=== PATIENT | female | born 1995 | race Caucasian/White ===

== ENCOUNTER → 2019-09-16 15:14 | Outpatient (CLI) | payer OTHER, SELFPAY | PROVIDERS: Visit Provider Physician Assistant | DX: J02.9 Acute pharyngitis, unspecified (principal) | CPT/HCPCS: 87070 ==

== ENCOUNTER 2020-02-13 16:15 | Emergency (ER) | payer OTHER, SELFPAY ==
[2020-02-13 16:25] VITALS: BP 136/89; PULSE 89; RESP 16; TEMP 36.6; O2SAT 99; BMI 23.2
--- NOTE | 2020-02-13 16:33 | DI.RAD.S_ITS ---
PROCEDURE: XR CHEST 2V INDICATIONS: COVID+ 01/18, increasing shortness of breath, R crackles TECHNIQUE: 2 views of the chest were acquired. COMPARISON: None. FINDINGS: Surgical changes and devices: None. Lungs and pleura: Lungs are clear. No pleural effusions or pneumothorax. Mediastinum: Mediastinal contours are normal. Heart size is normal. Bones and chest wall: No suspicious bony abnormalities. Soft tissues appear unremarkable. IMPRESSION: Clear lungs, without focal infiltrates. If there is clinical concern for a developing pulmonary process, a short-term followup chest series (with PA and lateral views, performed in deep inspiration) is suggested for further evaluation. Dictated by: Jus Bean M.D. on 02/13/2020 at 15:55 Approved by: Jus Bean M.D. on 02/13/2020 at 15:55
[2020-02-13 17:33] VITALS: BP 121/86; PULSE 80; O2SAT 98
[2020-02-13 18:00] VITALS: BP 112/79; PULSE 81; O2SAT 97
--- NOTE | 2020-02-13 18:11 | ED_ITS ---
HPI - SOB/Dyspnea General Chief Complaint: Shortness of Breath/Dyspnea Stated Complaint: SOB, Sharp Pain Tested Positive For COVID 01/18 Time Seen by Provider: 02/13/20 18:00 Source: patient Mode of arrival: Ambulatory Limitations: no limitations History of Present Illness HPI Narrative: Patient is a 25-year-old female who presents With shortness of breath. She states she tested positive for COVID on January 18. She lost her taste and smell which have not returned. She finished her quarantine is back at work overall has been feeling well in till today. She says today she felt like she could not take a deep breath just at rest. She says previously with exertion she is more short of breath which is likely thought the residual a COVID however today she felt was different. She has no real chest pain. She does not appear to be in any acute respiratory distress. She has not had any fever or productive cough. She has no recent travel and has been up and active. MD Complaint: shortness of breath and pain with inspiration Context: recent illness Severity: mild Relieving factors: nothing Exacerbating factors: nothing Related Data Home Medications Medication Instructions Recorded Confirmed No Known Home Medications 09/16/19 09/16/19 Allergies Allergy/AdvReac Type Severity Reaction Status Date / Time No Known Drug Allergies Allergy Unverified 09/16/19 15:08 Review of Systems Review of Systems Narrative: GENERAL: Denies chills, fatigue, malaise, fever, sweats, travel HEENT: Denies sinus pain, ear pain, sore throat, difficulty swallowing, neck pain RESPIRATORY: See HPI CARDIOVASCULAR: Denies chest pain, palpitations, orthopnea, edema GASTROINTESTINAL: Denies nausea, vomiting, abdominal pain, diarrhea, constipation, melena. : Denies dysuria, frequency, incontinence, hematuria, urinary retention, flank pain. MUSCULOSKELETAL: Denies weakness, joint pain, or bony pain SKIN: No rash, no erythema, no pruritus NEUROLOGIC: Denies weakness, dizziness, headache, numbness, change in speech, confusion PSYCHIATRIC: No concerning psychosocial issues. 12 point review of systems is negative except for those stated above and HPI Patient History Medical History COVID-19 Social History Smoking Status: Never smoker Smoking Status: Never smoker alcohol intake frequency: holidays/special occasions only Substance Use Type: does not use Exam Initial Vital Signs Initial Vital Signs: Vital Signs Temperature 97.8 F 02/13/20 16:25 Pulse Rate 89 02/13/20 16:25 Respiratory Rate 16 02/13/20 16:25 Blood Pressure 136/89 02/13/20 16:25 Pulse Oximetry 99 02/13/20 16:25 GENERAL: Well-appearing, well-nourished and in no acute distress. HEENT: Head atraumatic,EOMI, pupils reactive, face symmetric, moist mucous membranes CARDIOVASCULAR: Regular rate and rhythm without murmurs, rubs or gallops. RESPIRATORY: Breath sounds equal bilaterally, no wheezes rales or rhonchi. ABDOMEN: Soft, nontender. Normoactive bowel sounds all 4 quadrants. No guarding or rebound. EXTREMITIES: Normal range of motion, no clubbing or edema. Neurovascularly intact NEUROLOGICAL: Alert and oriented x4.Normal gait and speech. SKIN: Warm, dry, no laceration, no petechiae, no rashes or lesions. Course Orders Ordered: ED Orders 02/13/20 16:33 XR chest 2V Stat 02/13/20 18:11 EKG-12 Lead Stat Discontinued Medications Albuterol (Albuterol Hfa Prepack) 1 box [facility] Stop: 02/13/20 18:12 Last Admin: 02/13/20 18:24 Dose: 1 box Documented by: JAJA Vital Signs Vital signs: Vital Signs - 8 hr 02/13/20 16:25 02/13/20 17:33 02/13/20 18:00 Temperature 97.8 F Pulse Rate 89 80 81 Respiratory Rate 16 Blood Pressure 136/89 121/86 112/79 Pulse Oximetry 99 98 97 02/13/20 18:30 Temperature Pulse Rate 78 Respiratory Rate Blood Pressure 122/79 Pulse Oximetry 98 MDM - SOB/Dyspnea Imaging Data Chest x-ray: Radiologist's Impression: PROCEDURE: XR CHEST 2V INDICATIONS: COVID+ 12/1, increasing shortness of breath, R crackles TECHNIQUE: 2 views of the chest were acquired. COMPARISON: None. FINDINGS: Surgical changes and devices: None. Lungs and pleura: Lungs are clear. No pleural effusions or pneumothorax. Mediastinum: Mediastinal contours are normal. Heart size is normal. Bones and chest wall: No suspicious bony abnormalities. Soft tissues appear unremarkable. IMPRESSION: Clear lungs, without focal infiltrates. If there is clinical concern for a developing pulmonary process, a short-term followup chest series (with PA and lateral views, performed in deep inspiration) is suggested for further evaluation. Dictated by: Jus Bean M.D. on 02/13/2020 at 15:55 ECG Data Attestation: I personally reviewed and interpreted this ECG as follows: Prior ECG tracings: not available for review Interpretation: Normal sinus rhythm rate 81 p.r. interval 127 to wrist [address] changes no priors to compare MDM Narrative Medical decision making narrative: Patient has significant improvement with albuterol. She is not tachycardic. I suspect some of her symptoms are sequela of recent COVID. At this time I do not suspect PE, Symptoms resolved with albuterol, I do not see any the changes in she is not tachycardic. Discharge Plan Departure Patient Disposition: Home Clinical Impression: Reactive airway disease Instructions: DI for Reactive Airway Disease-Adult Activity Restrictions/Additional Instructions: *You have been diagnosed with reactive airway *What to do: What you are experiencing is likely related to your most recent COVID-19 illness. Hopefully this is not per minute. X-ray does not show any sign of pneumonia no need for antibiotics at this time. *Continue to take medications as directed Albuterol inhaler 1-2 puffs every 4 hours if having shortness of breath *Follow up with your primary care provider in 2-3 days *Return to ER if you should have increasing shortness of breath, fever, or any new, worsening or concerning symptoms Prescriptions: No Action No Known Home Medications RF: 0 Referrals: [facility] [Outside]
[2020-02-13] MEDS: ALBUTEROL HFA PREPACK 1 BOX MISC (18:24)
[2020-02-13 18:30] VITALS: BP 122/79; PULSE 78; O2SAT 98
== END 2020-02-13 19:22 | disposition home or self-care (01) ==
PROVIDERS: Emergency Provider Emergency Medicine
DX: U07.1 COVID-19 (principal); J45.909 Unspecified asthma, uncomplicated
CPT/HCPCS: 71046; 93005; 99283; 99284

== ENCOUNTER → 2020-10-25 16:13 | Outpatient (CLI) | payer OTHER, SELFPAY ==
[2020-10-25 17:19] LABS: COVID19 -Nasal RAPID Negative (Negative)
== END ==
PROVIDERS: Referring Provider Physician Assistant; Visit Provider Physician Assistant
DX: Z20.822 Contact with and (suspected) exposure to COVID-19 (principal)
CPT/HCPCS: 87635

== ENCOUNTER 2020-10-26 09:29 | Day surgery (SDC) | payer OTHER, SELFPAY ==
[2020-10-26] VITALS (7 sets, daily range): BP systolic 106–116; BP diastolic 66–81; PULSE 63–86; RESP 15–20; TEMP 36.4–36.9; O2SAT 99–100; BMI 22.1
--- NOTE | 2020-10-26 | PATH_ITS ---
[facility] Accession Number: [id number] . 01 Material submitted: . PART A: colon - RANDOM COLON PART B: rectum - RECTAL POLYP . 02 Diagnosis: A. Random Colon, Biopsies: Colonic mucosa with no diagnostic abnormality. Negative for active, chronic, and microscopic colitis. Negative for dysplasia and malignancy. . B. Rectum, Polyp, Biopsy: Hyperplastic polyp. [facility] 10/28/2020 1116 Local . 02 Electronically signed: . Petty Cabrera MD, Pathologist NPI- [id number] . 01 Gross description: . Part A: RANDOM COLON: Received in formalin are 2 fragment(s) of graf, soft tissue measuring 0.4 x 0.3 x 0.2 cm to 0.2 x 0.1 x 0.1 cm submitted entirely in 1 cassette(s) Part B: RECTAL POLYP: Received in formalin is 1 fragment(s) of graf, soft tissue measuring 0.3 x 0.2 x 0.1 cm submitted entirely in 1 cassette(s) /VIRGIL 10/27/2020 0433 Local . 02 Pathologist provided ICD-10: R19.7 . 02 CPT . 326091, [id number] Performed at: 01 [facility] [address], [place], [place] [id number] MD Miguel Angel Hull MD Phone: [phone] Performed at: 02 [facility] [address] [place], [place] [id number] MD Petty Cabrera MD Phone: [phone]
[2020-10-26] MEDS: SODIUM CHLORIDE 0.9% 1,000 ML 125 ML IV (10:22)
--- NOTE | 2020-10-26 10:44 | PM.HP.1 ---
History of Present Illness History of Present Illness Date Patient Seen: 10/26/20 Time Patient Seen: 10:45 Chief complaint: SDC Narrative: I reviewed Dr. Abarca's note from 10/18/2020. The patient has been having diarrhea for the last couple of years. Patient History Medical History COVID-19 Family & Social History Tobacco & Substance use: Smoking Status Never smoker alcohol intake current alcohol intake frequency holiday/special occasion Substance Use Type does not use Meds Home Medications and Allergies Home Medications Medication Instructions Recorded Confirmed Type No Known Home Medications 10/26/20 10/26/20 History Allergies Allergy/AdvReac Type Severity Reaction Status Date / Time No Known Drug Allergies Allergy Verified 10/26/20 10:13 Review of Systems Review of Systems ROS: Yes All systems reviewed with the patient and are negative except as otherwise documented Exam Vital Signs (past 8 hours): - 10/26/20 10:16 Temperature 98.4 F Pulse Rate 86 Respiratory Rate 16 Blood Pressure 111/74 Pulse Oximetry 99 Oxygen Delivery Method Room Air Const General: cooperative and comfortable Orientation: alert HENPR Head: normocephalic Ears: external ears normal Nose: external nose normal Face and sinus: normal facial exam Mouth: oral mucosae normal Eyes General: appearance normal, both eyes and all related structures Neck Neck: normal visual inspection Chest Chest: normal inspection of the chest Resp Effort & Inspection: normal respiratory effort Auscultation: clear to auscultation bilaterally Cardio Rate: regular rate Rhythm: regular rhythm Heart Sounds: no murmurs GI Inspection: normal to inspection Palpation: soft and No tender Auscultation: normal bowel sounds Skin General: no rashes or lesions noted and No jaundice Neuro General: patient alert and moves all extremities Cognition: normal cognition Speech: speech normal Extrem General: no pedal edema Psych Appearance: grossly normal Assessment & Plan Assessment & Plan narrative: 25-year-old female with chronic diarrhea of uncertain etiology. Colonoscopy is planned today for exclusion of ulcerative colitis or Crohn's Time Spent With Patient Critical Care time: I spent a total of [] minutes of critical care time on this patient's care today; this time is exclusive of procedural time.
--- NOTE | 2020-10-26 10:46 | PM.PREOP ---
Pre-operative Note COVID-19 COVID-19 status: Negative Result date/Date tested (Pos, Neg/Pending): 10/25/20 Interval Note History & Physical reviewed/Exam performed by Physician: Yes Changes to H&P: No ASA Class (for procedural sedation): I
--- NOTE | 2020-10-26 11:39 | P.OP.ENDO_ITS ---
Operative Date/Time/Diagnoses Date of procedure: 10/26/20 Time of procedure: 11:39 Pre-op diagnosis: Diarrhea Post-op diagnosis: same Procedure & Clinicians Study performed: Colonoscopy with biopsies Same procedure as scheduled: Yes Indications: Diarrhea Surgeon: Sarthak Christian Procedure Notes SCOAP/Timeout: Done Procedure in detail: After the risks and benefits were explained, written and verbal informed consent was obtained. The patient was brought into the procedure room and placed into the left lateral decubitus position. See nurse pmo project manager notes Digital rectal examination was accomplished. The scope was in troduced into the patient and advanced under direct visualization to the cecum as identified by the appendiceal orifice and ileocecal valve. The scope was slowly withdrawn to carefully examine the mucosa for any defects or lesions. Comprehensive imaging was accomplished throughout the rectum including the dentate line. The colon was decompressed, the scope was then removed from the patient who tolerated the procedure well. Bowel prep adequate Adult colonoscope Scope withdrawal time: 9 minutes Sedation minutes: 20 Complications: none Impression: There was no evidence of any rectal or colonic inflammation throughout. The terminal ileum was interrogated and appeared visually quite normal. Random colon biopsies were taken for exclusion of microscopic inflammation. There was a diminutive polyp in the rectum removed with cold forceps. Endoscopic diagnosis: 1. Diminutive rectal polyp 2. Otherwise visually normal appearing colonoscopy and terminal ileoscopy Post-procedure Plan for aftercare: 1. Await histopathology 2. Follow up GI clinic Disposition: PACU
== END 2020-10-26 12:15 | disposition home or self-care (01) ==
PROVIDERS: PCP Physician Assistant Medical; Referring Provider Internal Medicine Gastroenterology; Visit Provider Internal Medicine Gastroenterology
PROC: 0DJD8ZZ Inspection of Lower Intestinal Tract, Via Natural or Artificial Opening Endoscopic (ICD-10-PCS; CPT 45378; principal; 2020-10-26 11:00)
DX: R19.7 Diarrhea, unspecified (principal); K62.1 Rectal polyp; Z86.16 Personal history of COVID-19
CPT/HCPCS: 45380